=== PATIENT | female | born 1975 | race Caucasian/White ===

== ENCOUNTER 2023-06-09 07:45 | Outpatient (CLI) | payer OTHER ==
[~2023-06-09 07:45] MED LIST: CARAFATE1 G PO; PROTONIX40 MG PO; REGLAN5 MG/ML IJ
== END 2023-06-09 08:02 | disposition home or self-care (01) ==
LOC: RX STUDY 07:45
PROVIDERS: ATTEND Internal Medicine Gastroenterology
DX: D50.8 Other iron deficiency anemias (principal); K21.00 Gastro-esophageal reflux disease with esophagitis, without bleeding; Z88.5 Allergy status to narcotic agent; Z91.018 Allergy to other foods